=== PATIENT | female | born 1995 | race Two or more races ===

== ENCOUNTER 2019-03-31 11:56 | Inpatient (IN) | payer MEDICAID ==
[~2019-03-31] VITALS: Ht 174 cm; Wt 65.8 kg
[2019-03-31] MEDS ORDERED: OLAN5TAB2 PO (15:48)
[2019-03-31] MEDS ORDERED: QUEtiapine FUMARATE 100 MG TABLET PO PRN (16:00)
[2019-03-31] MEDS ORDERED: ZOLPIDEM TARTRATE 10 MG TABLET PO PRN (16:00)
[2019-03-31] MEDS ORDERED: INFLUENZA VIRUS VACCINE QVS 2019-20 (3YR+)/PF 60 MCG/0.5 ML SYRINGE IM ONE (16:15)
[2019-03-31 17:18] VITALS: BP 116/64
[2019-04-01 05:48] VITALS: BP 114/78
[2019-04-01] MEDS ORDERED: CloNIDine HCL 0.1 MG TABLET PO PRN (06:30)
[2019-04-01] MEDS ORDERED: PETROLATUM,WHITE 28 GM JELLY TP PRN (06:30)
[2019-04-01] MEDS ORDERED: NICOTINE 14 MG/24 HOUR PATCH TD PRN (06:30)
[2019-04-01] MEDS ORDERED: IBUPROFEN 400 MG TABLET PO PRN (06:30)
[2019-04-01] MEDS ORDERED: MAGNESIUM HYDROXIDE SUSPENSION 30 ML UDCUP PO PRN (06:30)
[2019-04-01] MEDS ORDERED: ACETAMINOPHEN 325 MG TABLET PO PRN (06:30)
[2019-04-01] MEDS ORDERED: GuaiFENesin/D-METHORPHAN [SUGAR-FREE] 200-20MG/10 ML SYRUP UDCUP PO PRN (06:30)
[2019-04-01] MEDS ORDERED: DOCUSATE SODIUM 100 MG CAPSULE PO PRN (06:30)
[2019-04-01] MEDS ORDERED: ALBUTEROL SULFATE HFA 90 MCG/PUFF 8 GM INHALER IH PRN (06:30)
[2019-04-01] MEDS ORDERED: MAG HYDROX/AL HYDROX/SIMETH ES 30 ML SUSPENSION UDCUP PO PRN (06:30)
[2019-04-01] MEDS ORDERED: LOPERAMIDE HCL 2 MG CAPSULE PO PRN (06:30)
[2019-04-01 08:06] VITALS: BP 102/53
[2019-04-01 16:09] VITALS: BP 138/81
[2019-04-01] MEDS: OLANZapine 5 MG TABLET PO SCH (21:08)
[2019-04-02 02:20] VITALS: BP 111/61
[2019-04-02] MEDS: LORazepam 2 MG TABLET PO PRN ×2 (02:20→17:33)
[2019-04-02 08:12] VITALS: BP 109/59
[2019-04-02] MEDS: ONDANSETRON HCL 4 MG TABLET PO PRN (10:20)
[2019-04-02 16:37] VITALS: BP 103/66
[2019-04-02] MEDS: OLANZapine 5 MG TABLET PO SCH (20:13)
[2019-04-03 05:37] VITALS: BP 114/65
[2019-04-03 08:13] VITALS: BP 119/71
[2019-04-03] MEDS: LORazepam 2 MG TABLET PO PRN (13:36)
[2019-04-03 16:11] VITALS: BP 106/61
[2019-04-03] MEDS: OLANZapine 5 MG TABLET PO SCH (20:03)
[2019-04-04 05:59] VITALS: BP 107/62
[2019-04-04 08:12] VITALS: BP 104/54
[2019-04-04 16:13] VITALS: BP 115/67
[2019-04-04] MEDS: OLANZapine 5 MG TABLET PO SCH (21:00)
[2019-04-05 06:25] VITALS: BP 102/60
[2019-04-05 08:18] VITALS: BP 108/55
[2019-04-05 16:00] VITALS: BP 102/64
[2019-04-05] MEDS: OLANZapine 5 MG TABLET PO SCH (21:00)
[2019-04-05] MEDS: LORazepam 2 MG TABLET PO PRN (23:56)
[2019-04-06 00:20] VITALS: BP 103/68
[2019-04-06 08:07] VITALS: BP 111/60
[2019-04-06] MEDS: OLANZapine 5 MG TABLET PO SCH ×2 (12:05→20:09)
[2019-04-06 16:08] VITALS: BP 104/74
[2019-04-06] MEDS: ONDANSETRON HCL 4 MG TABLET PO PRN (18:34)
[2019-04-07 07:13] VITALS: BP 115/68
[2019-04-07] MEDS: OLANZapine 5 MG TABLET PO SCH ×2 (08:12→20:52)
[2019-04-07 08:23] VITALS: BP 109/61
[2019-04-07 16:03] VITALS: BP 111/64
[2019-04-07] MEDS: LORazepam 2 MG TABLET PO PRN ×2 (18:57→23:46)
[2019-04-08 03:15] VITALS: BP 113/72
[2019-04-08 08:17] VITALS: BP 110/71
[2019-04-08] MEDS: OLANZapine 5 MG TABLET PO SCH ×2 (09:21→20:01)
[2019-04-08 16:04] VITALS: BP 97/63
[2019-04-08] MEDS: LORazepam 2 MG TABLET PO PRN (20:44)
[2019-04-09 05:13] VITALS: BP 95/60
[2019-04-09 08:03] VITALS: BP 119/68
[2019-04-09] MEDS: OLANZapine 5 MG TABLET PO SCH (08:18)
[2019-04-09] MEDS ORDERED: OLAN5TAB27 PO (10:45)
== END 2019-04-09 17:11 | disposition home or self-care (01) | DRG 750 ==
LOC: B3A 14:00
DX: F25.1 Schizoaffective disorder, depressive type (principal); I95.9 Hypotension, unspecified; R45.851 Suicidal ideations; K21.9 Gastro-esophageal reflux disease without esophagitis; Z28.21 Immunization not carried out because of patient refusal; Z79.899 Other long term (current) drug therapy
CPT/HCPCS: 87081; Q0162